=== PATIENT | male | born 1985 | race Caucasian/White ===

== ENCOUNTER 2024-01-20 04:03 | Emergency (ER) | payer OTHER, SELFPAY ==
[2024-01-20 04:12] VITALS: BP 146/100; PULSE 93; TEMP 36.8; O2SAT 100; BMI 26.4
[2024-01-20 04:16] VITALS: PULSE 92
--- NOTE | 2024-01-20 04:17 | ECG_ITS ---
[facility] Test Date: 2024-01-20 Pat Name: DURGA PALFAOX II Department: Room: - Gender: Male Complaint Investigator: : 1985 Requested By: [id number] Order Number: [id number] Reading MD: SPEEDY RUIZ Measurements Intervals [place] Rate: 92 P: 57 OK: 160 QRS: 115 QRSD: 100 T: 17 QT: 358 QTc: 407 Interpretive Statements 1100 Sinus rhythm 2440 Incomplete right bundle branch block 5120 Possible right ventricular hypertrophy 9130 borderline ECG No previous ECG available for comparison Electronically Signed On 01-21-2024 8:08:31 EDT by SPEEDY RUIZ
--- NOTE | 2024-01-20 04:20 | XR_ITS ---
The [address] [address] Patient Name: DURGA PALAFOX II MRN: [id number] date: 1985 Sex: M Assigned Patient Location: ER Current Patient Location: Accession/Order Number: [id number] Exam Date: 01/20/2024 16:30 Report Date: 01/20/2024 06:39 At the request of: MANDA STARKS Procedure: XR cervical spine 2-3V HISTORY: Left-sided neck pain radiating down the left arm with numbness. XR cervical spine 2-3V: 01/20/2024 4:30 PM EDT COMPARISON: None. FINDINGS: Frontal, lateral and odontoid views of the cervical spine were obtained. There is mild discogenic disease at the C5-C6 level. No compression fracture or subluxation is seen. The odontoid appears intact. There is a mild rotatory dextroconvex scoliosis of the lumbar spine centered at the C5-C6 level. There is an azygos lobe fissure in the right upper lobe which is a normal variant. There is uncovertebral arthropathy on the left at the C5-C6 level. XR/XR cervical spine 2-3V IMPRESSION: 1. No fracture or subluxation of the cervical spine. 2. Mild discogenic disease at the C5-C6 level with uncovertebral arthropathy on the left at this level which may be a potential cause for left foraminal narrowing. An outpatient MRI of the cervical spine may be of benefit for further evaluation if the patient's symptoms persist. Electronically authenticated by: VANDANA TOBIN Date: 01/20/2024 06:39
--- NOTE | 2024-01-20 04:23 | ED_ITS ---
HPI HPI - General Adult General Chief complaint: Chest Pain Stated complaint: CHEST AND NECK PAIN Time Seen by Provider: 01/20/24 04:16 Source: patient Mode of arrival: walk-in Limitations: no limitations History of Present Illness HPI narrative: 38-year-old male presents to the emergency department for pain in the left side of his neck. He has had this for few weeks and it has been continuous. It goes into his left arm and it feels numb. No injury. He works construction. No symptoms in the right arm. Related Data Previous Rx's ?Medication ?Instructions ?Recorded prednisone 10 mg tablet See Rx Instructions .Route 01/20/24 .COMPLEX #30 tabs Allergies Allergy/AdvReac Type Severity Reaction Status Date / Time acetaminophen [From Vicodin] Allergy Unknown Verified 01/20/24 04:17 hydrocodone [From Vicodin] Allergy Unknown Verified 01/20/24 04:17 Penicillins Allergy Unknown Verified 01/20/24 04:17 Opioid HPI Opioid Management Most Recent Opioid Data: Last Pain Scale 6 01/20/24 04:33 Last ED Pain Assessment 01/20/24 04:33 Review of Systems ROS Narrative A ten point review of systems is negative except as noted above. Exam Narrative Exam Narrative: Nurses note and vital signs reviewed and patient is not hypoxic. General: The patient appears well and in no apparent distress. Patient is resting comfortably on cart. Skin: Warm, dry, no pallor noted. There is no rash noted. Head: Normocephalic, atraumatic. Neck has no mass bruise rash or swelling Eye: Normal conjunctiva, no drainage Ears, Nose, Mouth, and Throat: oral mucosa is moist. Nares patent. Cardiovascular: Regular Rate and Rhythm Respiratory: Patient is in no distress, no accessory muscle use, lungs are clear to auscultation, no wheezing, rales or rhonchi Back: non-tender GI: Soft and nontender Musculoskeletal: The left arm has no swelling. Hand grasp intact and radial pulse 2+. Shoulder elbow and wrist have full range of motion Neurological: A&O, normal speech Psychiatric: Cooperative Constitutional Vital Signs, click to edit/add: Last Vital Signs Temp 98.3 F 01/20/24 04:12 Pulse 93 H 01/20/24 04:12 Resp 16 01/20/24 04:12 BP 146/100 H 01/20/24 04:12 Pulse Ox 100 01/20/24 04:12 O2 Del Method Room Air 01/20/24 04:12 Course Vital Signs Vital signs: Vital Signs Temperature 98.3 F 01/20/24 04:12 Pulse Rate 93 H 01/20/24 04:12 Respiratory Rate 16 01/20/24 04:12 Blood Pressure 146/100 H 01/20/24 04:12 Pulse Oximetry 100 01/20/24 04:12 Oxygen Delivery Method Room Air 01/20/24 04:12 Temperature 98.3 F 01/20/24 04:12 Pulse Rate 93 H 01/20/24 04:12 Respiratory Rate 16 01/20/24 04:12 Blood Pressure 146/100 H 01/20/24 04:12 Pulse Oximetry 100 01/20/24 04:12 Oxygen Delivery Method Room Air 01/20/24 04:12 Medical Decision Making MDM Narrative Medical decision making narrative: EKG on my interpretation shows no acute findings. He has had the symptoms continuously for 2 weeks. C-spine x-rays on my interpretation do not show any acute findings either. He will be placed on a course of prednisone and was given a list of PCPs that he can follow-up with. The importance of follow-up was discussed. I have no clinical suspicion of heart disease at this point. Treatment diagnosis and follow-up were discussed thoroughly. He will also need blood pressure rechecked by PCP. Differential Diagnosis Differential Diagnosis: Cervical arthritis, cervical radiculopathy, muscle strain Imaging Data C-spine x-ray: My impression: No acute findings ECG Data Attestation: I personally reviewed and interpreted this ECG as follows: (EKG on my interpretation shows sinus rhythm without acute change.) Discharge Plan Discharge Stand Alone Forms: Portal Instructions Chief Complaint: Chest Pain Clinical Impression: Cervical radiculopathy Patient Disposition: Home, Self-Care Time of Disposition Decision: 04:41 Condition: Good Mode of Transportation: Private Vehicle Prescriptions / Home Meds: New prednisone 10 mg tablet See Rx Instructions .ROUTE .COMPLEX Qty: 30 0RF Rx Instructions: 4 by mouth daily for three days then 3 by mouth daily for three days then 2 by mouth daily for three days then 1 by mouth daily for three days Print Language: Portuguese Instructions: Cervical Radiculopathy (ED) Referrals: Physician,Non-Staff, MD [Primary Care Provider] - 1 week
== END 2024-01-20 05:06 | disposition home or self-care (01) ==
PROVIDERS: Emergency Provider Emergency Medicine
DX: M54.12 Radiculopathy, cervical region (principal)
CPT/HCPCS: 72040; 93005; 99284